=== PATIENT | female | born 1980 | race Caucasian/White ===

== ENCOUNTER 2017-01-19 18:21 | Emergency (ER) | payer MEDICAID ==
[2017-01-19] MEDS ORDERED: SODIUM CHLORIDE 0.9% 1,000 ML IV ONE (19:05)
--- NOTE | 2017-01-19 19:08 | ED Physician Documentation ---
PD HPI ABD PAIN - Stated complaint Stated Complaint: AB PX - Chief complaint Chief Complaint: Abd Pain - History obtained from History obtained from: Patient - History of Present Illness Timing - onset: Other (36-year-old woman with history of tubal ligation, no other abdominal surgeries had vomiting 3 days ago which then went away and became diarrhea which is persistent and watery without blood. Over the last 2 days has developed periumbilical and right lower quadrant pain without fevers or chills. She only has intermittent nausea now. She was not exposed to anything and she has no recent travel of significance. No sick contacts.) Review of Systems Ten Systems: 10 systems reviewed and negative Constitutional: denies: Fever, Chills GI: reports: Abdominal Pain, Nausea, Diarrhea. 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 - Allergies Allergies/Adverse Reactions: Allergies Allergy/AdvReac Type Severity Reaction Status Date / Time No Known Drug Allergies Allergy Verified 06/13/14 09:17 - Social History Does the pt smoke?: Yes Smoking Status: Current every day smoker Does the pt drink ETOH?: No Does the pt have substance abuse?: No - Family History Family history: reports: Non contributory - POLST Patient has POLST: No PD ED PE NORMAL - Vitals Vital signs reviewed: Yes - General General: Alert and oriented X 3, No acute distress - HEENT HEENT: PERRL, EOMI - Neck Neck: Supple, no meningeal sign, No bony TTP - Cardiac Cardiac: RRR, No murmur - Respiratory Respiratory: No respiratory distress, Clear bilaterally - Abdomen Abdomen: Normal bowel sounds, Other (Mild right lower quadrant tenderness superior to McBurney's point, no guarding or rebound, negative psoas and obturator, negative Rovsing's.) - Back Back: No CVA TTP, No spinal TTP - Derm Derm: Normal color, Warm and dry - Extremities Extremities: No edema, No calf tenderness / cord - Neuro Neuro: Alert and oriented X 3, Normal speech - Psych Psych: Normal mood, Normal affect Results - Vitals Vitals: Vital Signs - 24 hr 01/19/17 18:27 Temperature 37.0 C Heart Rate 70 Respiratory 16 Rate Blood Pressure 131/73 H O2 Saturation 100 Oxygen O2 Source Room air - Labs Labs: Laboratory Tests 01/19/17 01/19/17 01/19/17 18:46 18:46 19:10 WBC 9.4 RBC 4.36 Hgb 13.2 Hct 39.4 MCV 90.5 MCH 30.2 MCHC 33.4 RDW 12.7 Plt Count 264 MPV 9.0 Neut # 6.9 H Lymph # 1.7 [place] # 0.7 Eos # 0.1 Baso # 0.0 Absolute Nucleated RBC 0.00 Nucleated RBCs 0.0 Sodium 138 Potassium 3.1 L Chloride 105 Carbon Dioxide 26 Anion Gap 7.0 BUN 12 Creatinine 0.7 Estimated GFR (MDRD) 95 Glucose 95 Calcium 8.7 Total Bilirubin 0.3 AST 22 ALT 24 Alkaline Phosphatase 53 Total Protein 6.3 L Albumin 3.8 Globulin 2.5 Albumin/Globulin Ratio 1.5 Lipase 30 Urine Color YELLOW Urine Clarity CLEAR Urine pH 6.0 Ur Specific [place] 1.010 Urine Protein NEGATIVE Urine Glucose (UA) NEGATIVE Urine Ketones NEGATIVE Urine Occult Blood NEGATIVE Urine Nitrite NEGATIVE Urine Bilirubin NEGATIVE Urine Urobilinogen 0.2 (NORMAL) Ur Leukocyte Esterase NEGATIVE Ur Microscopic Review NOT INDICATED Urine Culture Comments NOT INDICATED Urine HCG, Qual NEGATIVE - Rads (name of study) CT A/P Radiology: EMP read contemporaneously (Negative for appendicitis, it does appear that she has mesenteric adenitis, also prominent left pelvic vessels and hepatic hemangioma.) PD MEDICAL DECISION MAKING - ED course ED course: 36-year-old woman with what sounds like viral gastroenteritis which was followed by right-sided abdominal pain which seems somewhat inconsistent with appendicitis but not completely reassuring either so a CT was done and showed findings of adenitis which is likely causative. Departure - Departure Disposition: 01 Home, Self Care Clinical Impression: Mesenteric lymphadenitis Abdominal pain Qualifiers: Abdominal location: right lower quadrant Qualified Code(s): R10.31 - Right lower quadrant pain Condition: Good Record reviewed to determine appropriate education?: Yes Instructions: ED Abdominal Pain Appendx Poss Comments: Return if not better in the next couple of days, anytime if worse or if the fever comes back or other new symptoms. Your blood pressure was elevated today on check into the emergency department. This does not mean that you have hypertension, it is a common phenomenon to come to the emergency department and have elevated blood pressure. I recommend that she see her primary care physician within the week to have it rechecked when you are feeling better.
[2017-01-19 19:10] LABS: BASOPHILS % (AUTO) 0.4 %; EOSINOPHILS # (AUTO) 0.1 10^3/uL (0.0-0.7); EOSINOPHILS % (AUTO) 1.1 %; HCT - HEMATOCRIT 39.4 % (37.0-47.0); HGB - HEMOGLOBIN 13.2 g/dL (12.0-16.0); LYMPHOCYTES # (AUTO) 1.7 10^3/uL (1.5-3.5); LYMPHOCYTES % (AUTO) 18.1 %; MEAN CORPUSCULAR HEMOGLOBIN 30.2 pg (27.0-31.0); MEAN CORPUSCULAR HGB CONC 33.4 g/dL (32.0-36.0); MEAN CORPUSCULAR VOLUME 90.5 fL (81.0-99.0); MONOCYTES # (AUTO) 0.7 10^3/uL (0.0-1.0); MONOCYTES % (AUTO) 7.1 %; NEUTROPHILS # (AUTO) 6.9 10^3/uL (1.5-6.6); NEUTROPHILS % (AUTO) 73.3 %; RED BLOOD COUNT 4.36 10^6/uL (4.20-5.40); RED CELL DISTRIBUTION WIDTH 12.7 % (12.0-15.0); UNCORRECTED WHITE BLOOD COUNT 9.4 x10^3/uL; WHITE BLOOD COUNT 9.4 x10^3/uL (4.8-10.8)
[2017-01-19 19:14] LABS: BILIRUBIN,URINE NEGATIVE (NEGATIVE)
[2017-01-19 19:17] LABS: HCG UR QUAL NEGATIVE; UA CHARGE (STRIP ONLY) YES; UR CULTURE IF IND NOT INDICATED
[2017-01-19 19:24] LABS: ALBUMIN/GLOBULIN RATIO 1.5 (1.0-2.2); BILIRUBIN,TOTAL 0.3 mg/dL (0.2-1.0); CALCIUM 8.7 mg/dL (8.5-10.3); CREATININE 0.7 mg/dL (0.4-1.0); POTASSIUM 3.1 mmol/L (3.5-5.0); TOTAL PROTEIN 6.3 g/dL (6.7-8.2)
[2017-01-19] MEDS ORDERED: IOPAMIDOL-300 100 ML VIAL IVP ONE (19:49)
--- NOTE | 2017-01-19 20:13 | CT Preliminary Report ---
Exam: CT Abdomen/Pelvis W/ IMPRESSION: 1. Negative for appendicitis. Mild prominence of right lower quadrant lymph nodes suggests lymphadeni tis. 2. 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 3. Prominent hepatic hemangioma and other incidental findings. [facility] SITE ID: [id number]
--- NOTE | 2017-01-19 20:16 | CT Report ---
EXAM: CT ABDOMEN AND PELVIS EXAM DATE: 01/19/2017 07:50 PM. CLINICAL HISTORY: IV only, RLQ pain. COMPARISONS: None. TECHNIQUE: Routine helical CT imaging was performed through the abdomen and pelvis. IV contrast: 100 cc Isovue-300. Enteric contrast: No. Reconstructions: Coronal and sagittal. In accordance with CT protocol optimization, one or more of the following dose reduction techniques w ere utilized for this exam: automated exposure control, adjustment of mA and/or KV based on patient s ize, or use of iterative reconstructive technique. FINDINGS: Lung Bases: Unremarkable. Liver: Large lower right lobe hemangioma measuring about 5.5 cm in diameter. Otherwise unremarkable. Gallbladder/Bile Ducts: Unremarkable. Spleen: Normal. Pancreas: Normal. Adrenal Glands: Normal. Kidneys: Small left renal cyst. Otherwise unremarkable. No stone or hydronephrosis. Peritoneal Cavity/Bowel: Small rounded hypoattenuation nodules in right lower quadrant related to cec um, one anteriorly measuring 13 x 26 mm and one posteriorly measuring 12 x 7 mm, most likely lymph no radha. Minimal prominence of mesenteric and periaortic nodes generally. No bowel dilation, free fluid, free air, or excessive stool. The appendix is well visualized and normal, measuring 6 mm on sagittal image 39. Pelvic Organs: Unremarkable urinary bladder and uterus. Marked enhancement and prominence of left adn exal vessels including ovarian vein. Small left ovarian cyst measuring about 18 mm. Vasculature: No aneurysms or other significant abnormality. Bones: No significant abnormality. Other: None. IMPRESSION: 1. Negative for appendicitis. Mild prominence of right lower quadrant lymph nodes suggests lymphadeni tis. 2. 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 3. Prominent hepatic hemangioma and other incidental findings. [facility] Referring Provider Line: [phone] SITE ID: [id number]
[2017-01-19] MEDS ORDERED: HYDROcod/ACET 5/325 Prepack 6 PO STA (20:19)
[2017-01-19] MEDS ORDERED: HYDROcod/ACET 5/325 Prepack 6 PO ONE (20:37)
[2017-01-19 20:38] VITALS: BP 103/65
== END 2017-01-19 20:44 | disposition home or self-care (01) ==
LOC: ED 18:21
DX: I88.0 Nonspecific mesenteric lymphadenitis (principal); R10.31 Right lower quadrant pain; Z98.51 Tubal ligation status
CPT/HCPCS: 36415; 74177; 80053; 81003; 81025; 83690; 85025; 99283; 99284; Q9967; 81001; 87086

== ENCOUNTER 2017-12-29 16:22 | Outpatient (CLI) | payer MEDICAID ==
--- NOTE | 2017-12-29 17:13 | XRAY Report ---
Procedure Date: 12/29/2017 Accession Number: [id number] / [id number] Procedure: XRN - Foot 3 View LT CPT Code: FULL RESULT: EXAM: Foot 3 View LT DATE: 12/29/2017 4:31 PM CLINICAL HISTORY: HALLUX COMPARISON: None. TECHNIQUE: 3 views. FINDINGS: Bones: Minimal inferior calcaneal enthesopathy. No fracture or dislocation. Joints: Normal. No subluxations. Soft Tissues: Soft tissue swelling medial to the first metatarsophalangeal joint. No underlying erosion. IMPRESSION: Soft tissue swelling adjacent to the first metatarsophalangeal joint with no underlying erosion. [facility]
== END 2017-12-29 16:23 | disposition home or self-care (01) ==
LOC: DI.N 16:22
PROVIDERS: ATTEND Family Medicine
DX: M79.672 Pain in left foot (principal); M20.10 Hallux valgus (acquired), unspecified foot

== ENCOUNTER 2018-02-03 14:30 | Emergency (ER) | payer MEDICAID ==
[2018-02-03 15:03] LABS: BILIRUBIN,URINE NEGATIVE (NEGATIVE); GLUCOSE, URINE (UA) NEGATIVE (NEGATIVE); KETONES,URINE (UA) NEGATIVE (NEGATIVE); LEUKOCYTE ESTERASE, URINE NEGATIVE (NEGATIVE); NITRITE,URINE NEGATIVE (NEGATIVE); OCCULT BLOOD,URINE NEGATIVE (NEGATIVE); PROTEIN,URINE NEGATIVE (NEGATIVE); UROBILINOGEN,URINE 0.2 (NORMAL) E.U./dL (NORMAL)
[2018-02-03 15:08] LABS: CLARITY,URINE CLEAR (CLEAR); HCG UR QUAL NEGATIVE
[2018-02-03] MEDS ORDERED: KETOROLAC 60 MG/2 ML VIAL IM STA (15:22)
[2018-02-03] MEDS ORDERED: DEXAMETHASONE 10 MG/ML VIAL PO STA (15:22)
--- NOTE | 2018-02-03 15:27 | ED Physician Documentation ---
PD HPI BACK PAIN - Stated complaint Stated Complaint: LOWER BACK PX - Chief complaint Chief Complaint: Back Pain - History obtained from History obtained from: Patient - History of Present Illness Timing - onset: How many weeks ago (1) Timing - duration: Weeks (1) Timing - details: Gradual onset Pain level max: 8 Pain level now: 7 Location: Lower, Right, Left Quality: Pain, Aching Associated symptoms: No: Fever, Weakness, Numbness, Incontinent of urine, Unable to urinate, Hematuria Improves with: Rest Worsened by: Movement Contributing factors: Other (states started huring while camping) Similar symptoms before: Has not had sx before Recently seen: Not recently seen Review of Systems Constitutional: denies: Fever, Chills Ears: denies: Ear pain Nose: denies: Rhinorrhea / runny nose, Congestion Throat: denies: Sore throat Cardiac: denies: Chest pain / pressure Respiratory: denies: Cough GI: denies: Abdominal Pain, Nausea, Vomiting, Diarrhea : denies: Dysuria, Frequency, Hesitancy, Unable to Void Skin: denies: Rash Musculoskeletal: denies: Neck pain Neurologic: denies: Focal weakness, Numbness, Headache PD PAST MEDICAL HISTORY - Past Medical History Past Medical History: No - Past Surgical History 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, 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 - Present Medications Home Medications: Ambulatory Orders Medication Instructions Recorded Confirmed Cyclobenzaprine [Flexeril] 10 mg PO TID PRN #20 tablet 02/03/18 Meloxicam [Mobic] 15 mg PO DAILY PRN #20 tablet 02/03/18 predniSONE [Deltasone] 10 mg PO [id number] #42 tab 02/03/18 - Allergies Allergies/Adverse Reactions: Allergies Allergy/AdvReac Type Severity Reaction Status Date / Time No Known Drug Allergies Allergy Verified 06/13/14 09:17 - Social History Does the pt smoke?: Yes Smoking Status: Current every day smoker Does the pt drink ETOH?: No Does the pt have substance abuse?: No - Immunizations Immunizations are current?: Yes - POLST Patient has POLST: No PD ED PE NORMAL - Vitals Vital signs reviewed: Yes - General General: Alert and oriented X 3, No acute distress - HEENT HEENT: Moist mucous membranes - Neck Neck: Supple, no meningeal sign - Cardiac Cardiac: RRR - Respiratory Respiratory: No respiratory distress, Clear bilaterally - Abdomen Abdomen: Soft, Non tender, Non distended - Back Back: No CVA TTP, No spinal TTP, Other (TTP over the B SI joints. No swelling or deformity. ) - Derm Derm: Warm and dry - Extremities Extremities: No calf tenderness / cord, Other (normal bilateral lower extremity patellar and ankle jerk reflexes. Normal great toe extension bilaterally. 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 operations analyst 2-12 intact, No motor deficit, No sensory deficit - Psych Psych: Normal mood, Normal affect Results - Vitals Vitals: Vital Signs - 24 hr 02/03/18 02/03/18 14:38 15:47 Temperature 36.6 C 36.3 C L Heart Rate 79 57 L Respiratory 16 18 Rate Blood Pressure 143/87 H 124/72 O2 Saturation 100 100 Oxygen O2 Source Room air - Labs Labs: Laboratory Tests 02/03/18 14:50 Urine Color STRAW Urine Clarity CLEAR Urine pH 6.0 Ur Specific [place] <=1.005 Urine Protein NEGATIVE Urine Glucose (UA) NEGATIVE Urine Ketones NEGATIVE Urine Occult Blood NEGATIVE Urine Nitrite NEGATIVE Urine Bilirubin NEGATIVE Urine Urobilinogen 0.2 (NORMAL) Ur Leukocyte Esterase NEGATIVE Ur Microscopic Review NOT INDICATED Urine Culture Comments NOT INDICATED Urine HCG, Qual NEGATIVE PD MEDICAL DECISION MAKING - ED course Complexity details: reviewed results, re-evaluated patient, considered differential (no cauda equina, no spinal epidural abscess, no fracture, no aortic dissection or evidence of aneursym rupture), d/w patient ED course: Patient is a 37-year-old female who presents to the emergency department with low back pain. She has bilateral sacroiliac tenderness. Normal urine. No evidence of pyelonephritis. Will trial on pain medication and steroid taper for home. No evidence of cauda equina, epidural abscess or fracture. Patient counseled regarding signs and symptoms for which I believe and urgent re- evaluation would be necessary. Patient with good understanding of and agreement to plan and is comfortable going home at this time This document was made in part using voice recognition software. While efforts are made to proofread this document, sound alike and grammatical errors may occur. - Sepsis Event Vital Signs: Vital Signs - 24 hr 02/03/18 02/03/18 14:38 15:47 Temperature 36.6 C 36.3 C L Heart Rate 79 57 L Respiratory 16 18 Rate Blood Pressure 143/87 H 124/72 O2 Saturation 100 100 Oxygen O2 Source Room air Departure - Departure Disposition: 01 Home, Self Care Clinical Impression: Bilateral sacroiliitis Condition: Good Instructions: ED Sacroiliitis Follow-Up: Raj James MD [Primary Care Provider] - Within 1 week Prescriptions: Cyclobenzaprine [Flexeril] 10 mg PO TID PRN #20 tablet PRN Reason: Spasms Meloxicam [Mobic] 15 mg PO DAILY PRN #20 tablet PRN Reason: pain predniSONE [Deltasone] 10 mg PO [id number] #42 tab Comments: Return if you worsen. This should improve over the next few days. do not drive or operate heavy machinery while taking the flexeril. Discharge Date/Time: 02/03/18 15:46
[2018-02-03 15:47] VITALS: BP 124/72
== END 2018-02-03 15:46 | disposition home or self-care (01) ==
LOC: ED 14:30
DX: M46.1 Sacroiliitis, not elsewhere classified (principal); F17.200 Nicotine dependence, unspecified, uncomplicated
CPT/HCPCS: 81001; 81003; 81025; 87086; 96372; 99283

== ENCOUNTER 2018-08-06 14:28 | Emergency (ER) | payer MEDICAID ==
[2018-08-06 14:40] VITALS: BP 126/69
[2018-08-06] MEDS ORDERED: DEXAMETHASONE 10 MG/ML VIAL PO STA (16:10)
--- NOTE | 2018-08-06 16:11 | ED Physician Documentation ---
History of Present Illness - Stated complaint Stated Complaint: SINUS PRESSURE - Chief complaint Chief Complaint: Heent - History obtained from History obtained from: Patient - History of Present Illness Timing: How many days ago (3) Pain level max: 4 Pain level now: 3 - Treatment prior to arrival Treatment prior to arrival: 37-year-old female presents to the emergency department with nasal congestion, sinus pressure and coughing for the past 2 days. Subjective fevers. No vomiting. No diarrhea. Has not taken anything for this. Nothing makes it better or worse Review of Systems Nose: reports: Rhinorrhea / runny nose, Congestion, Sinus pressure / pain Throat: denies: Sore throat Respiratory: reports: Cough. 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 - Present Medications Home Medications: Ambulatory Orders Medication Instructions Recorded Confirmed Benzonatate [Tessalon Perle] 100 - 200 mg PO TID PRN #30 capsule 08/06/18 Cetirizine HCl/Pseudoephedrine 1 each PO BID PRN #30 tab.er.12h 08/06/18 [Zyrtec-D Tablet] Fluticasone [Flonase] 1 sprays CHARLENE DAILY PRN #1 bottle 08/06/18 - Allergies Allergies/Adverse Reactions: Allergies Allergy/AdvReac Type Severity Reaction Status Date / Time No Known Drug Allergies Allergy Verified 08/06/18 14:40 - Social History Does the pt smoke?: Yes Smoking Status: Current every day smoker Does the pt drink ETOH?: No Does the pt have substance abuse?: No - Family History Family history: reports: Non contributory - Immunizations Immunizations are current?: Yes - POLST Patient has POLST: No PD ED PE NORMAL - Vitals Vital signs reviewed: Yes - General General: Alert and oriented X 3, No acute distress, Well developed/nourished - HEENT HEENT: PERRL, Ears normal, Moist mucous membranes, Pharynx benign - Neck Neck: Supple, no meningeal sign, No adenopathy - Cardiac Cardiac: RRR, Strong equal pulses - Respiratory Respiratory: No respiratory distress, Clear bilaterally - Abdomen Abdomen: Soft, Non tender, Non distended - Derm Derm: Warm and dry, No rash - Neuro Neuro: Alert and oriented X 3 - Psych Psych: Normal mood, Normal affect Results - Vitals Vitals: Vital Signs - 24 hr 08/06/18 14:39 Temperature 36.1 C L Heart Rate 69 Respiratory 18 Rate Blood Pressure 126/69 O2 Saturation 99 Oxygen O2 Source Room air PD MEDICAL DECISION MAKING - ED course Complexity details: considered differential, d/w patient ED course: 37-year-old female with what appears to be sinus congestion and likely viral URI. Will place on decongestants for home. She is well-appearing, nontoxic. Afebrile. Patient counseled regarding signs and symptoms for which I believe and urgent re-evaluation would be necessary. Patient with good understanding of and agreement to plan and is comfortable going home at this time This document was made in part using voice recognition software. While efforts are made to proofread this document, sound alike and grammatical errors may occur. Departure - Departure Disposition: 01 Home, Self Care Clinical Impression: Viral URI Condition: Good Instructions: ED Viral Syndrome Follow-Up: your,doctor in 1 week [Other] Prescriptions: Benzonatate [Tessalon Perle] 100 - 200 mg PO TID PRN #30 capsule PRN Reason: Cough Cetirizine HCl/Pseudoephedrine [Zyrtec-D Tablet] 1 each PO BID PRN #30 tab.er.12h PRN Reason: nasal congestion Fluticasone [Flonase] 1 sprays CHARLENE DAILY PRN #1 bottle PRN Reason: Nasal Congestion Comments: Use the medications as prescribed. Return if you worsen. Follow-up with your doctor for further care. Forms: Activity restrictions
[2018-08-06] MEDS ORDERED: CHERRY SYRUP 10 ML UDC PO ONE (16:23)
== END 2018-08-06 16:51 | disposition home or self-care (01) ==
LOC: ED 14:28
DX: J06.9 Acute upper respiratory infection, unspecified (principal); B97.89 Other viral agents as the cause of diseases classified elsewhere; F17.200 Nicotine dependence, unspecified, uncomplicated
CPT/HCPCS: 99283; A9270

== ENCOUNTER 2018-08-22 15:04 | Emergency (ER) | payer MEDICAID ==
[2018-08-22] MEDS ORDERED: DEXAMETHASONE 10 MG/ML VIAL PO STA (15:57)
--- NOTE | 2018-08-22 16:01 | ED Physician Documentation ---
PD HPI HEENT - Stated complaint Stated Complaint: EAR PAIN/CONGESTION - Chief complaint Chief Complaint: General - History obtained from History obtained from: Patient - History of Present Illness Timing - onset: How many days ago (4) Timing - duration: Days (4) Timing - details: Gradual onset, Still present Location: Right ear, Sinuses Improves: Medication Worsens: Swalllowing Associated symptoms: Congestion, Rhinorrhea, Facial swelling, Headache, Cough Similar symptoms before: Has not had sx before Recently seen: Emergency Dept - Additional information Additional information: 38-year-old female developed a viral URI earlier in the month she had some improvement with use of allergy medications and she is subsequently developed cough and congestion sinus pressure and now right ear pain. She has had some trouble with pressure in both ears and trouble equalizing as well as muffled hearing. Review of Systems Constitutional: reports: Fever, Myalgias Eyes: denies: Decreased vision Ears: reports: Ear pain Nose: reports: Rhinorrhea / runny nose, Congestion, Sinus pressure / pain Throat: denies: Sore throat Cardiac: denies: Chest pain / pressure, Palpitations Respiratory: reports: Cough. 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 - Present Medications Home Medications: Ambulatory Orders Medication Instructions Recorded Confirmed Benzonatate [Tessalon Perle] 100 - 200 mg PO TID PRN #30 capsule 08/06/18 08/22/18 Cetirizine HCl/Pseudoephedrine 1 each PO BID PRN #30 tab.er.12h 08/06/18 08/22/18 [Zyrtec-D Tablet] Fluticasone [Flonase] 1 sprays CHARLENE DAILY PRN #1 bottle 08/06/18 08/22/18 Amox/Clav 875/125 [Augmentin] 1 each PO Q12H #20 tablet 08/22/18 - Allergies Allergies/Adverse Reactions: Allergies Allergy/AdvReac Type Severity Reaction Status Date / Time No Known Drug Allergies Allergy Verified 08/22/18 15:09 - Social History Does the pt smoke?: Yes Smoking Status: Current every day smoker Does the pt drink ETOH?: No Does the pt have substance abuse?: No - Immunizations Immunizations are current?: Yes - POLST Patient has POLST: No PD ED PE NORMAL - Vitals Vital signs reviewed: Yes (hypertensive ) - General General: Alert and oriented X 3, No acute distress, Well developed/nourished - HEENT HEENT: Atraumatic, PERRL, EOMI, Pharynx benign, Other (There is fluid and dullness with marginal inflamation to the right ear. The left is with minimal inflamation. There is point tenderness to the left maxiallary sinus and no the r ight or the frontal. ) - Neck Neck: Supple, no meningeal sign, No bony TTP - Cardiac Cardiac: RRR, No murmur - Respiratory Respiratory: No respiratory distress, Clear bilaterally - Abdomen Abdomen: Soft, Non tender - Back Back: No CVA TTP, No spinal TTP - Derm Derm: Normal color, Warm and dry, No rash - Extremities Extremities: No deformity, No edema - Neuro Neuro: Alert and oriented X 3, site physician 2-12 intact, No motor deficit, No sensory deficit, Normal speech Eye Opening: Spontaneous Motor: Obeys Commands Verbal: Oriented GCS Score: 15 - Psych Psych: Normal mood, Normal affect Results - Vitals Vitals: Vital Signs - 24 hr 08/22/18 15:07 Temperature 36.7 C Heart Rate 87 Respiratory 18 Rate Blood Pressure 146/97 H O2 Saturation 97 Oxygen O2 Source Room air PD MEDICAL DECISION MAKING - ED course Complexity details: considered differential, d/w patient ED course: 38-year-old female with cough and congestion marked sinus point tenderness to the left maxillary sinus and evident right otitis is administered dexamethasone 10 mg orally and we will place her on some Augmentin. Departure - Departure Disposition: 01 Home, Self Care Clinical Impression: Sinusitis, acute maxillary Qualifiers: Recurrence: not specified as recurrent Qualified Code(s): J01.00 - Acute maxillary sinusitis, unspecified Otitis media Qualifiers: Otitis media type: suppurative Chronicity: acute Laterality: right Recurrence: not specified as recurrent Spontaneous tympanic membrane rupture: without spontaneous rupture Qualified Code(s): H66.001 - Acute suppurative otitis media without spontaneous rupture of ear drum, right ear Condition: Stable Instructions: ED Sinusitis Abx Tx, ED Otitis Media Acute Adult Follow-Up: [facility] [Provider Group] Prescriptions: Amox/Clav 875/125 [Augmentin] 1 each PO Q12H #20 tablet
[2018-08-22 16:34] VITALS: BP 147/87
== END 2018-08-22 16:33 | disposition home or self-care (01) ==
LOC: ED 15:04
DX: J01.00 Acute maxillary sinusitis, unspecified (principal); H66.001 Acute suppurative otitis media without spontaneous rupture of ear drum, right ear; F17.200 Nicotine dependence, unspecified, uncomplicated
CPT/HCPCS: 99283

== ENCOUNTER 2018-12-21 08:00 | Outpatient (CLI) | payer MEDICAID | END 2018-12-21 23:59 | disposition home or self-care (01) | LOC: LAB.R 08:00 | PROVIDERS: ATTEND Family Medicine | DX: N89.8 Other specified noninflammatory disorders of vagina (principal) | CPT/HCPCS: 81599; 87480; 87510; 87660; 87661; 87801 ==

== ENCOUNTER 2023-11-23 08:05 | Outpatient (CLI) | payer MEDICAID ==
--- NOTE | 2023-11-23 12:54 | XRAY Report ---
PROCEDURE: Thoracic Spine 2V INDICATIONS: LOW BACK PAIN TECHNIQUE: 2 views of the thoracic spine were acquired. COMPARISON: None. FINDINGS: Bones: No fractures or dislocations. No suspicious bony lesions. 12 pairs of ribs are noted, and a ppear intact where visualized. Soft tissues: No paravertebral stripe thickening. IMPRESSION: No acute bony abnormality. No significant degenerative change. Reviewed by: Dinora Hirsch MD on 11/23/2023 12:53 PM PDT Approved by: Dinora Hirsch MD on 11/23/2023 12:53 PM PDT Station ID: [id number]
--- NOTE | 2023-11-23 12:55 | XRAY Report ---
PROCEDURE: Lumbar Spine 2-3V INDICATIONS: LOW BACK PAIN TECHNIQUE: 2 views of the lumbar spine were acquired. COMPARISON: None. FINDINGS: Surgical change: None. Bones: 5 [id number] vertebrae are present. There is normal bony alignment. No vertebral body co mpression fractures. No suspicious bony lesions. Soft tissues: Overlying bowel gas pattern is normal. No suspicious soft tissue calcifications. IMPRESSION: No significant degenerative change or acute osseous abnormality. Reviewed by: Dinora Hirsch MD on 11/23/2023 12:53 PM PDT Approved by: Dinora Hirsch MD on 11/23/2023 12:53 PM PDT Station ID: [id number]
== END 2023-11-23 10:42 | disposition home or self-care (01) ==
LOC: DI.N 08:05
PROVIDERS: ATTEND Physician Assistant Medical
DX: M54.50 Low back pain, unspecified (principal)